=== PATIENT | female | born 1965 | race Two or more races ===

== ENCOUNTER 2019-09-07 08:39 | Outpatient (CLI) | payer OTHER | END 2019-09-07 10:40 | disposition home or self-care (01) | LOC: NUCLEAR 08:39 | DX: R00.2 Palpitations (principal) ==

== ENCOUNTER 2019-09-08 08:24 | Outpatient (CLI) | payer OTHER | END 2019-09-08 09:10 | disposition home or self-care (01) | LOC: NUCLEAR 08:24 | DX: I11.9 Hypertensive heart disease without heart failure (principal) ==